=== PATIENT | female | born 1940 | race Two or more races ===

== ENCOUNTER 2019-10-07 08:48 | Outpatient (CLI) | payer OTHER ==
[~2019-10-07] VITALS: Ht 149.9 cm; Wt 47.2 kg
[2019-10-07] MEDS ORDERED: FORTAMET500 MG (09:06)
[2019-10-07] MEDS ORDERED: LOSARTAN POTAS100 MG (09:11)
[2019-10-07] MEDS ORDERED: ATORVASTATIN CA20 MG (09:11)
[2019-10-07] MEDS ORDERED: DOXAZOSIN MESYLA4 MG (09:11)
[2019-10-07] MEDS ORDERED: FLUOXETINE (09:12)
[2019-10-07] MEDS ORDERED: PREVACID30 MG (09:12)
[2019-10-07] MEDS ORDERED: XANAX XR0.5 MG (09:13)
== END 2019-10-07 09:30 | disposition home or self-care (01) ==
LOC: OFIC 805 08:48
PROVIDERS: ATTEND Otolaryngology
DX: R07.0 Pain in throat (principal); K21.9 Gastro-esophageal reflux disease without esophagitis; J39.2 Other diseases of pharynx

== ENCOUNTER 2019-11-04 10:43 | Outpatient (CLI) | payer OTHER ==
[~2019-11-04 10:43] MED LIST: ATORVASTATIN CA20 MG; DOXAZOSIN MESYLA4 MG; FLUOXETINE; FORTAMET500 MG; LOSARTAN POTAS100 MG; PREVACID30 MG; XANAX XR0.5 MG
== END 2019-11-04 15:48 | disposition home or self-care (01) ==
LOC: OFIC 805 10:43
PROVIDERS: ATTEND Otolaryngology
DX: K21.9 Gastro-esophageal reflux disease without esophagitis (principal); J39.2 Other diseases of pharynx; R07.0 Pain in throat; R13.19 Other dysphagia

== ENCOUNTER 2019-12-02 09:53 | Outpatient (CLI) | payer OTHER | END 2019-12-02 10:30 | disposition home or self-care (01) | LOC: OFIC 805 09:53 | PROVIDERS: ATTEND Otolaryngology | DX: R07.0 Pain in throat (principal); K21.9 Gastro-esophageal reflux disease without esophagitis; J39.2 Other diseases of pharynx; R13.19 Other dysphagia ==

== ENCOUNTER 2020-01-18 10:55 | Outpatient (CLI) | payer OTHER | END 2020-01-18 15:20 | disposition home or self-care (01) | LOC: OFIC 805 10:55 | PROVIDERS: ATTEND Otolaryngology | DX: J39.2 Other diseases of pharynx (principal); R13.19 Other dysphagia; K21.9 Gastro-esophageal reflux disease without esophagitis; R07.0 Pain in throat ==